=== PATIENT | male | born 1950 | race Caucasian/White ===

== ENCOUNTER 2017-08-07 04:48 | Emergency (ER) | payer OTHER ==
[~2017-08-07] VITALS: Ht 177.8 cm; Wt 76.9 kg
[2017-08-07 05:29] LABS: APPEARANCE CLEAR ((CLEAR)); BILIRUBIN NEGATIVE; BLOOD NEGATIVE; COLOR YELLOW ((YELLOW)); GLUCOSE (STRIP) NEGATIVE; KETONES NEGATIVE; LEUKOCYTES NEGATIVE; NITRITE NEGATIVE; PROTEIN (STRIP) NEGATIVE; SPECIFIC GRAVITY 1.024 (1.000-1.030); UCUL ADDED? NO; UROBILINOGEN 0.2 MG/DL (0.2-1.0)
[2017-08-07] MEDS ORDERED: LIPITOR80 MG PO (05:48)
[2017-08-07] MEDS ORDERED: CLOPIDOGREL75 MG PO (05:49)
[2017-08-07 05:50] LABS: ALBUMIN 3.9 g/dL (3.2-4.8); CHLORIDE 106 mEq/L (99-109); POTASSIUM 4.6 mEq/L (3.7-5.4); SODIUM 139 mEq/L (136-147)
[2017-08-07] MEDS ORDERED: COREG6.25 M1 PO (05:50)
[2017-08-07] MEDS ORDERED: ALTACE2.5 MG PO (05:50)
[2017-08-07] MEDS ORDERED: ALPHAGAN 0100 DROP/5 RIGHT EYE (05:51)
[2017-08-07] MEDS ORDERED: CLARITIN,ALAVAR10 MG PO (05:52)
[2017-08-07] MEDS ORDERED: ASPIR 8181 M1 PO (05:52)
[2017-08-07] MEDS ORDERED: NITROSTAT0.4 MG SL (05:52)
[2017-08-07 05:53] LABS: GLUCOSE 101 mg/dL (70-99); HEMATOCRIT 38.6 % (38.0-50.0); HEMOGLOBIN 12.8 G/DL (12.5-16.6); MCH 31.9 PG (29.0-34.0); MCHC 33.2 G/DL (30.0-36.0); MCV 96.3 FL (86-99); PLATELET COUNT 166 K/uL (156-360); RBC DIS.WIDTH-CV 12.5 % (11.8-14.6); RBC DIS.WIDTH-SD 44.5 % (39-53); RED BLOOD COUNT 4.01 M/uL (4.00-5.50); TOTAL PROTEIN 6.7 g/dL (6.4-8.3); WHITE BLOOD COUNT 4.2 K/uL (4.1-10.2)
[2017-08-07] MEDS ORDERED: MIRALAX17 GM PO (05:53)
[2017-08-07 05:55] LABS: TOTAL BILIRUBIN 0.5 mg/dL (0.0-1.0)
[2017-08-07 05:56] LABS: ALKALINE PHOSPHATASE 63 IU/L (3-129)
[2017-08-07 05:57] LABS: CREATININE 1.1 mg/dL (0.6-1.3); GFR ESTIMATE (CALCULATED) > 59 mL/min/ (58.99-99999)
[2017-08-07 05:58] LABS: AST (GOT) 35 IU/L (2-34); DIRECT BILIRUBIN 0.2 mg/dL (0.0-0.3); UREA NITROGEN (BUN) 21 mg/dL (9-23)
[2017-08-07 05:59] LABS: ALT (GPT) 24 IU/L (3-49)
[2017-08-07 06:00] LABS: CREATINE KINASE 312 IU/L (1-294); LIPASE 18 U/L (1.0-51.0)
[2017-08-07] MEDS ORDERED: PROVENTIL HFA6.7 GM IH (06:13)
[2017-08-07] MEDS ORDERED: ZITHROMAX Z-PA250 MG PO (06:13)
[2017-08-07] MEDS ORDERED: TESSALON PERLE100 MG PO (06:13)
[2017-08-07 06:53] VITALS: BP 142/82
== END 2017-08-07 06:55 | disposition home or self-care (01) ==
LOC: EME 04:48
PROVIDERS: Emergency Medicine
DX: J20.9 Acute bronchitis, unspecified (principal); E86.0 Dehydration; E78.5 Hyperlipidemia, unspecified; I10 Essential (primary) hypertension
CPT/HCPCS: 71046; 80048; 80076; 81003; 82550; 83690; 85027; 99281; 99284; J7030

== ENCOUNTER 2018-02-10 10:19 | Emergency (ER) | payer OTHER ==
[~2018-02-10] VITALS: Ht 177.8 cm; Wt 75.9 kg
[~2018-02-10 10:19] MED LIST: ALPHAGAN 0100 DROP/5 RIGHT EYE; ALTACE2.5 MG PO; ASPIR 8181 M1 PO; CLARITIN,ALAVAR10 MG PO; CLOPIDOGREL75 MG PO; COREG6.25 M1 PO; LIPITOR80 MG PO; MIRALAX17 GM PO; NITROSTAT0.4 MG SL; PROVENTIL HFA6.7 GM IH; TESSALON PERLE100 MG PO; ZITHROMAX Z-PA250 MG PO
[2018-02-10 11:08] LABS: HEMATOCRIT 35.1 % (38.0-50.0); MCH 32.9 PG (29.0-34.0); MCHC 34.2 G/DL (30.0-36.0); MCV 96.2 FL (86-99); PLATELET COUNT 171 K/uL (156-360); RBC DIS.WIDTH-CV 12.2 % (11.8-14.6); RBC DIS.WIDTH-SD 42.9 % (39-53); RED BLOOD COUNT 3.65 M/uL (4.00-5.50)
[2018-02-10 11:20] LABS: CHLORIDE 106 mEq/L (99-109); POTASSIUM 4.9 mEq/L (3.7-5.4); SODIUM 140 mEq/L (136-147)
[2018-02-10 11:21] LABS: GLUCOSE 97 mg/dL (70-99)
[2018-02-10 11:25] LABS: GFR ESTIMATE (CALCULATED) > 59 mL/min/ (58.99-99999)
[2018-02-10 11:26] LABS: UREA NITROGEN (BUN) 19 mg/dL (9-23)
[2018-02-10 11:31] LABS: TROP-I INTERPRETATION NEGATIVE; TROPONIN-I < 0.01 ng/mL (0.0-0.30)
[2018-02-10 13:49] VITALS: BP 136/77
== END 2018-02-10 13:54 | disposition home or self-care (01) ==
LOC: EME 10:19
DX: E86.0 Dehydration (principal); R42 Dizziness and giddiness; E78.5 Hyperlipidemia, unspecified; I10 Essential (primary) hypertension; I25.2 Old myocardial infarction; Z95.5 Presence of coronary angioplasty implant and graft; Z88.8 Allergy status to other drugs, medicaments and biological substances
CPT/HCPCS: 71046; 80048; 84484; 85027; 93005; 99281; 99284; J7030